=== PATIENT | male | born 1995 | race African-American/Black ===

== ENCOUNTER 2016-10-01 20:13 | Emergency (ER) | payer MEDICAID, OTHER ==
[~2016-10-01] VITALS: Ht 175.3 cm; Wt 68.0 kg
[~2016-10-01 20:13] MED LIST: AZITHROMYCIN250 MG ORAL; IBUPROFEN600 MG PO; KETOCONAZOLE15 GM TOP; MOTRIN400 MG PO; MOTRIN600 MG PO; NKM
[2016-10-01] MEDS ORDERED: ANUSOL-HC30 GM RC (20:39)
[2016-10-01] MEDS ORDERED: IBUPROFEN600 MG ORAL (20:39)
[2016-10-01] MEDS ORDERED: MIRALAX119 GM PO (20:39)
[2016-10-01] MEDS ORDERED: traMADol 50mg tab ORAL ONE (20:45)
[2016-10-01 21:00] VITALS: BP 135/88
[2016-10-01 21:01] VITALS: BP 135/88
--- NOTE | 2016-10-01 21:06 | Emergency Room Report ---
History of Present Illness General Chief Complaint: Pain Source: Patient Present Illness HPI The patient is a 21-year-old male presenting for anal pain. Patient states that he noticed the pain last night. Pain described as a 10 out of 10 sharp sensation and is worse with sitting down and touch. Does not radiate. He states that he tried to "pop it" which only increased the pain. He denies recent history of diarrhea or constipation. He does admit to straining while using the restroom. He denies any anal insertion. He has noticed bright red blood on toilet paper. He states he has ever had this in the past. He denies any other symptoms including nausea, vomiting, fever, chills, abdominal pain, melena, hematochezia, dysuria, hematuria Allergies: Coded Allergies: No Known Allergies (Unverified , 05/03/12) Patient History Past Medical History: see triage record Pertinent Family History: none Reviewed Nursing Documentation: PMH: Agreed, PSxH: Agreed Nursing Documentation-PMH Past Medical History: No Stated History Review of Systems All Other Systems: negative except mentioned in HPI Physical Exam Vital Signs Date Time Temp Pulse Resp B/P Pulse Ox O2 Delivery O2 Flow Rate FiO2 10/01/16 20:17 98.6 63 20 135/86 94 Room Air Sp02 EP Interpretation: reviewed, normal General Appearance: no apparent distress, alert, GCS 15, non-toxic Head: normocephalic, atraumatic Eyes: bilateral eye PERRL, bilateral eye normal inspection ENT: hearing grossly normal, normal pharynx, no angioedema, normal voice Gastrointestinal: normal bowel sounds, non tender, soft, non-distended, no guarding, no rebound Rectal: normal rectal tone, hemorrhoids - external Neurologic: alert, oriented x3, responsive, motor strength/tone normal, sensory intact, speech normal Psychiatric: judgement/insight normal, memory normal, mood/affect normal, no suicidal/homicidal ideation Skin: normal color, no rash, warm/dry, well hydrated Lymphatic: no adenopathy Medical Decision Making PA Attestation Dr. Hartley is my supervising physician. Patient management was discussed with my supervising physician Diagnostic Impression: Primary Impression: External hemorrhoid ER Course The patient is a 21-year-old male presenting for anal pain. Differential diagnoses considered include but not limited to internal hemorrhoid , external hemorrhoid, cellulitis, abscess, rectal prolapse Physical exam: No apparent distress Abdomen is soft and nontender Rectal exam: Normal rectal tone. There is an external hemorrhoid. Tender to palpation. No fluctuance. No bleeding or discharge. No prolapse The patient is given tramadol in the emergency department for pain Be discharged home with a prescription for MiraLAX, Motrin, and Anusol. He is given instructions for sitz bath. ER precautions given Last Vital Signs Date Time Temp Pulse Resp B/P Pulse Ox O2 Delivery O2 Flow Rate FiO2 10/01/16 20:17 98.6 63 20 135/86 94 Room Air Status: improved Disposition: HOME, SELF-CARE Condition: Improved Scripts Hydrocortisone Hc 2.5% Cream (ANUSOL-HC 2.5% CREAM) Y Cr 30 GM RC Q12HR, #30 GM Prov: HUMAIRA GRANT P.A. 10/01/16 Polyethylene Glycol 3350 (MIRALAX) 119 Gm Powder 17 GM PO DAILY, #119 GM Prov: HUMAIRA GRANT P.A. 10/01/16 Ibuprofen* (MOTRIN*) 600 Mg Tablet 600 MG ORAL Q8H Y for For Pain, #30 TAB 0 Refills Prov: HUMAIRA GRANT P.A. 10/01/16 Referrals: NOT CHOSEN [facility]/MD,REFERRING (PCP) Patient Instructions: How to Take a Sitz Bath, Hemorrhoids Additional Instructions: I discussed my findings with the patient. All questions and concerns have been answered. Treatment and medication compliance have been addressed. I advised the patient that they need to follow up with PMD in 3-5 days. Return to ED if symptoms worsen, new symptoms arise, or if needed for any reason. Patient verbalized understanding of discharge instructions. HUMAIRA GRANT Oct 01, 2016 21:06
== END 2016-10-01 21:03 | disposition home or self-care (01) ==
LOC: EMR 20:36
DX: K64.4 Residual hemorrhoidal skin tags (principal)
CPT/HCPCS: 99284

== ENCOUNTER 2018-03-04 09:51 | Emergency (ER) | payer MEDICAID ==
[~2018-03-04] VITALS: Ht 175.3 cm; Wt 65.8 kg
[~2018-03-04 09:51] MED LIST changes: +ANUSOL-HC30 GM RC; +IBUPROFEN600 MG ORAL; +MIRALAX119 GM PO
[2018-03-04] MEDS ORDERED: Ketorolac 60mg Inj IM ONE (11:15)
[2018-03-04 11:25] VITALS: BP 122/76
--- NOTE | 2018-03-04 11:43 | Diagnostic Imaging Report ---
Indication: left ankle pain Comparison: None Findings: 3 views of the left ankle obtained. No acute fracture, malalignment, periostitis, or osteochondral defects are identified. There is lateral soft tissue swelling. Impression: Lateral soft tissue swelling
--- NOTE | 2018-03-04 11:57 | Emergency Room Report ---
History of Present Illness General Chief Complaint: Lower Extremity Injury Source: Patient Present Illness HPI This patient states he was playing basketball 2 days ago and came down hard on his left ankle. He states that he heard a pop in his ankle. He has had swelling and pain ever since. He has been walking on the ankle. He has no other injuries or complaints. Allergies: Coded Allergies: No Known Allergies (Unverified , 05/03/12) Patient History Past Medical History: none, see triage record Social History: Denies: smoking, alcohol use, drug use Reviewed Nursing Documentation: PMH: Agreed; PSxH: Agreed Nursing Documentation-PMH Past Medical History: No Stated History Review of Systems All Other Systems: negative except mentioned in HPI Physical Exam Vital Signs Date Time Temp Pulse Resp B/P (MAP) Pulse Ox O2 Delivery O2 Flow Rate FiO2 03/04/18 09:56 97.5 86 14 122/76 98 Room Air Sp02 EP Interpretation: reviewed, normal General Appearance: no apparent distress, alert, GCS 15, non-toxic Head: normocephalic, atraumatic Eyes: bilateral eye normal inspection, bilateral eye PERRL ENT: hearing grossly normal, normal pharynx, no angioedema, normal voice Neck: full range of motion, supple/symm/no masses Respiratory: no respiratory distress, no retraction, no accessory muscle use, speaking full sentences Rectal: deferred Musculoskeletal: back normal, normal range of motion, swelling - Swelling, ecchymosis and ttp in the L. lateral ankle. no deformity noted. 2/4 DP pulse. Neurologic: alert, oriented x3, responsive, motor strength/tone normal, sensory intact, speech normal Psychiatric: judgement/insight normal, memory normal, mood/affect normal, no suicidal/homicidal ideation Skin: normal color, no rash, warm/dry, well hydrated Medical Decision Making Diagnostic Impression: Primary Impression: Ankle sprain ER Course This patient has a clinical presentation consistent with left ankle sprain. The patient did have significant tenderness in an antalgic gait so I did obtain imaging which showed no acute fracture. The patient was placed in an ankle splint and given crutches for comfort. I also gave anti-inflammatories. No emergency medical condition is identified at this time. I warned the patient that plain x-rays have a significant false-negative rate. Factors, significant soft tissue injuries, and other pathology may be present even though not seen on x-ray. Injuries serious enough to ultimately require surgery may be present with normal x-rays. This can occur because some fractures or not initially visible on plain film x-rays or, rarely, the radiologist may discover a subtle fracture that I missed on my preliminary read. It was explained that close outpatient followup is required to evaluate this possibility. If all symptoms resolve or improve significantly in the coming weeks, no further testing is needed. However, if the pain/symptoms persist, additional studies such as MRI/CT or repeat x-ray would be needed to rule out the possibility of serious soft tissue injury. The patient agreed to followup as directed. The patient eloped without his discharge paperwork. Other X-Ray Diagnostic Results Other X-Ray Diagnostic Results : X-Ray ordered: L. ankle xray # of Views/Limited Vs Complete: Complete Indication: Pain EP Interpretation: Yes Interpretation: no fractures Impression: No acute disease Electronically Signed by: Flaquito Last Vital Signs Date Time Temp Pulse Resp B/P (MAP) Pulse Ox O2 Delivery O2 Flow Rate FiO2 03/04/18 09:56 97.5 86 14 122/76 98 Room Air Status: improved Disposition: HOME, SELF-CARE Condition: Improved Referrals: NOT CHOSEN [facility]/,REFERRING (PCP) Patient Instructions: Ankle Sprain Jayne Bear DO Mar 04, 2018 11:57
== END 2018-03-04 11:25 | disposition home or self-care (01) ==
LOC: EMR 10:35
DX: S93.402A Sprain of unspecified ligament of left ankle, initial encounter (principal); X50.9XXA Other and unspecified overexertion or strenuous movements or postures, initial encounter; Y93.67 Activity, basketball; Y92.9 Unspecified place or not applicable
CPT/HCPCS: 29515; 96372; 99283